=== PATIENT | male | born 2000 | race Two or more races ===

== ENCOUNTER 2023-11-11 14:02 | Emergency (ER) | payer SELFPAY ==
[~2023-11-11] VITALS: Ht 185.4 cm; Wt 71.3 kg
[2023-11-11 14:21] VITALS: BP 130/85; PULSE 84; RESP 18; O2SAT 96
== END 2023-11-11 18:15 | disposition left against medical advice (07) ==
LOC: ER 14:02
DX: K08.89 Other specified disorders of teeth and supporting structures (principal); Z53.21 Procedure and treatment not carried out due to patient leaving prior to being seen by health care provider